=== PATIENT | male | born 1955 | race Caucasian/White ===

== ENCOUNTER 2021-08-25 14:18 | Observation (INO) | payer OTHER ==
[2021-08-25 15:01] LABS: Absolute Lymphocytes (CBC) 2.1 K/uL (0.7-4.9); Basophils % 0.7 % (0-1.3); Lymphocytes % 24.4 % (15.3-44.8); MPV 7.5 fL (7.6-11.3); RBC Red Blood Cell Count 5.23 M/uL (4.33-5.43)
[2021-08-25 15:05] LABS: Protime INR 0.97
--- NOTE | 2021-08-25 15:29 | RAD REPORT ---
EXAM DESCRIPTION: RAD - Chest Single View - 08/25/2021 3:22 pm CLINICAL HISTORY: CHEST PAIN COMPARISON: <Comparisons> FINDINGS: Lines: None. Lungs: No evidence of edema or pneumonia. Pleural: No significant pleural effusions or pneumothorax. Cardiac: The heart size is within normal limits. Bones: No acute fractures. Other: IMPRESSION: No acute cardiopulmonary disease.
[2021-08-25 15:31] LABS: ALT/SGPT 25 U/L (12-78); AST/SGOT 11 U/L (15-37); Albumin 3.6 g/dL (3.4-5.0); Alkaline Phosphatase 97 U/L (45-117); BUN Blood Urea Nitrogen 15 mg/dL (7-18); Bicarbonate 25 mmol/L (21-32); Bilirubin Direct 0.2 mg/dL (0-0.2); Bilirubin Total 0.7 mg/dL (0.2-1.0); Glucose Level 150 mg/dL (74-106); Magnesium 2.2 mg/dL (1.8-2.4); NT PRO-BNP 11 pg/mL (<125); Protein, Total 6.8 g/dL (6.4-8.2); Sodium Level 140 mmol/L (136-145); Troponin (Emerg Dept Use Only) < 0.02 ng/mL (0.0-0.045)
[2021-08-25] MEDS ORDERED: KETOROLAC 30 MG/ML INJ ONE (15:43)
[2021-08-25] MEDS ORDERED: ASPIRIN 81 MG CHEWABLE TABLET ONE (15:52)
--- NOTE | 2021-08-25 16:52 | ER ---
Nurse's Notes [facility] Name: Amrit Stewart Age: 66 yrs Sex: Male : 1955 Arrival Date: 08/25/2021 Time: 14:23 Bed 19 Private MD: Diagnosis: Chest pain, unspecified Presentation: 08/25 14:43 Chief complaint: Patient states: pt has had pain to midsternal area around to left iw shoulder and back, has chronic left shoulder pain but this pain is different, also is bloated today, denies cardiac hx, pain is 5/10 no, comes in waves. Coronavirus screen: At this time, the client does not indicate any symptoms associated with coronavirus-19. Ebola Screen: Patient negative for fever greater than or equal to 101.5 degrees Fahrenheit, and additional compatible Ebola Virus Disease symptoms Patient denies exposure to infectious person. Patient denies travel to an Ebola-affected area in the 21 days before illness onset. No symptoms or risks identified at this time. Initial Sepsis Screen: Does the patient meet any 2 criteria? No. Patient's initial sepsis screen is negative. Does the patient have a suspected source of infection? No. Patient's initial sepsis screen is negative. Risk Assessment: Do you want to hurt yourself or someone else? Patient reports no desire to harm self or others. Onset of symptoms was August 25, 2021. 14:43 Method Of Arrival: Ambulatory iw 14:43 Acuity: JOSHUA 3 iw Historical: - Allergies: 14:45 PENICILLINS; iw 14:45 Morphine; iw 14:45 tramadol; iw - Home Meds: 14:45 atorvastatin oral [Active]; losartan oral [Active]; iw - PMHx: 14:45 Hypertensive disorder; Diabetes mellitus; Arthritis; iw - Immunization history:: Client reports having NOT received the Covid vaccine. - Social history:: Smoking status: Patient denies any tobacco usage or history of. Screenin:56 Abuse screen: Denies threats or abuse. Nutritional screening: No deficits noted. vg1 Tuberculosis screening: No symptoms or risk factors identified. Fall Risk No fall in past 12 months (0 pts). No secondary diagnosis (0 pts). IV access (20 points). Ambulatory Aid- None/Bed Rest/Nurse Assist (0 pts). Gait- Normal/Bed Rest/Wheelchair (0 pts) Mental Status- Oriented to own ability (0 pts). Total Calhoun Fall Scale indicates No Risk (0-24 pts). Assessment: 14:54 General: Appears in no apparent distress. comfortable, Behavior is calm, cooperative. vg1 Pain: Complains of pain in mid-sternal area Pain radiates to back Pain began 'this morning' Also complains of nausea. Neuro: Level of Consciousness is awake, alert, obeys commands, Oriented to person, place, time, situation. Cardiovascular: Patient's skin is warm and dry. Respiratory: Reports shortness of breath Airway is patent Respiratory effort is even, unlabored, Denies cough. GI: Reports nausea. : No signs and/or symptoms were reported regarding the genitourinary system. EENT: No signs and/or symptoms were reported regarding the EENT system. Derm: Skin is intact, is healthy with good turgor, Skin is pink, warm \T\ dry. Musculoskeletal: Circulation, motion, and sensation intact. 15:57 Reassessment: Patient appears in no apparent distress at this time. Patient and/or vg1 family updated on plan of care and expected duration. Pain level reassessed. Patient is alert, oriented x 3, equal unlabored respirations, skin warm/dry/pink. Patient states feeling better. 17:19 Reassessment: Patient appears in no apparent distress at this time. No changes from ld1 previously documented assessment. Patient and/or family updated on plan of care and expected duration. Pain level reassessed. Patient is alert, oriented x 3, equal unlabored respirations, skin warm/dry/pink. Vital Signs: 14:30 BP 124 / 90; Pulse 82; Resp 18; Temp 98.4(TE); Pulse Ox 97% on R/A; Weight 104.33 kg; iw Height 6 ft. 0 in. (182.88 cm); Pain 7/10; 15:45 BP 125 / 90; Pulse 76; Resp 18; Pulse Ox 97% ; vg1 16:24 BP 121 / 86 LA Sitting; Pulse 74; Resp 19; Pulse Ox 100% on R/A; ld1 16:27 BP 111 / 99 RA Sitting; Pulse 70; Resp 18; Pulse Ox 99% on R/A; ld1 17:19 BP 120 / 83; Pulse 68; Resp 18; Pulse Ox 99% on R/A; ld1 14:30 Body Mass Index 31.19 (104.33 kg, 182.88 cm) iw ED Course: 14:23 Patient arrived in ED. mr 14:38 EKG done, by ED staff, reviewed by Aníbal Barroso MD. dh3 14:40 Initial lab(s) drawn, by me, held in ED. Inserted saline lock: 20 gauge in right dh3 forearm, using aseptic technique. Blood collected. 14:45 Triage completed. iw 14:46 Patient has correct armband on for positive identification. Placed in gown. Bed in low mh5 position. Call light in reach. Side rails up X 1. quality assurance monitor chassis on. Pulse ox on. NIBP on. 14:54 Jessica Murrieta, RN is Primary Nurse. vg1 14:54 Basic Metabolic Panel Sent. mh5 14:54 Basic Metabolic Panel Sent. mh5 14:54 CBC with Diff Sent. mh5 14:54 LFT's Sent. mh5 14:54 Magnesium Sent. mh5 14:54 NT PRO-BNP Sent. mh5 14:54 PT-INR Sent. mh5 14:54 Troponin (emerg Dept Use Only) Sent. mh5 14:56 No provider procedures requiring assistance completed. Patient maintains SpO2 vg1 saturation greater than 95% on room air. 14:56 Arm band placed on. vg1 15:16 Aron Ruggiero PA is PHCP. cp 15:16 Aníbal Barroso MD is Attending Physician. cp 15:22 XRAY Chest (1 view) In Process Unspecified. EDKS 16:52 Corinna Bernal MD is Hospitalizing Provider. cp 20:46 Patient admitted, IV remains in place. ld1 Administered Medications: 15:54 Drug: Aspirin Chewable Tablet 324 mg Route: PO; vg1 15:55 Drug: Ketorolac 15 mg Route: IVP; Site: right wrist; vg1 Outcome: 16:52 Decision to Hospitalize by Provider. cp 20:46 Admitted to Med/surg accompanied by nurse, via wheelchair, room 230, with chart, Report ld1 called to IZABELLA Ford 20:46 Condition: stable 20:46 Instructed on the need for admit. 20:46 Patient left the ED. ld1 Signatures: Dispatcher [employer] EDKS Katty Flores Irene RN RN iw Aron Ruggiero PA PA cp Martinez, Maria [facility] Rich, Kalee [facility] Jessica Murrieta, RN RN vg1 Nafisa Giles, RN RN ld1
--- NOTE | 2021-08-25 16:53 | EDPHYS ---
Physician Documentation [facility] Name: Amrit Stewart Age: 66 yrs Sex: Male : 1955 Arrival Date: 08/25/2021 Time: 14:23 Bed 19 Private MD: ED Physician Aníbal Barroso HPI: 08/25 15:30 This 66 yrs old Male presents to ER via Ambulatory with complaints of Chest Tightness, cp Shoulder Pain, Shortness Of Breath. 15:30 The patient or guardian reports chest pain that is located primarily in the substernal cp area. 15:30 Onset: today. cp 15:30 The pain radiates to left back. Associated signs and symptoms: Pertinent positives: cp chronic left shoulder pain, Pertinent negatives: abdominal pain, cough, lower extremity pain, lower extremity swelling, shortness of breath, syncope, vomiting. The chest pain is described as aching. Duration: The patient or guardian reports multiple episodes, that wax and wane. Modifying factors: the symptoms are aggravated by activity. Severity of pain: in the emergency department the pain has improved markedly. Historical: - Allergies: 14:45 PENICILLINS; iw 14:45 Morphine; iw 14:45 tramadol; iw - Home Meds: 14:45 atorvastatin oral [Active]; losartan oral [Active]; iw - PMHx: 14:45 Hypertensive disorder; Diabetes mellitus; Arthritis; iw - Immunization history:: Client reports having NOT received the Covid vaccine. - Social history:: Smoking status: Patient denies any tobacco usage or history of. ROS: 15:35 Constitutional: Negative for body aches, chills, fever, poor PO intake. cp 15:35 Eyes: Negative for injury, pain, redness, and discharge. cp 15:35 Neck: Negative for pain with movement, pain at rest, stiffness. 15:35 Cardiovascular: Positive for chest pain, Negative for edema, palpitations. 15:35 Respiratory: Positive for shortness of breath, at rest. Negative for cough, wheezing. 15:35 Abdomen/GI: Positive for nausea, abdominal distension, Negative for abdominal pain, vomiting, diarrhea, constipation, anorexia. 15:35 Back: Positive for radiated pain, Negative for injury or acute deformity, decreased range of motion. 15:35 MS/extremity: Positive for pain, of the left shoulder, Negative for injury or acute deformity, decreased range of motion, paresthesias. 15:35 All other systems are negative. cp Exam: 14:45 ECG was reviewed by the Attending Physician. cp 15:40 Constitutional: The patient appears in no acute distress, alert, awake, cp non-diaphoretic, non-toxic, well developed, well nourished. 15:40 Head/Face: Normocephalic, atraumatic. cp 15:40 Eyes: Periorbital structures: appear normal, Conjunctiva: normal, no exudate, no injection, Sclera: no appreciated abnormality, Lids and lashes: appear normal, bilaterally. 15:40 ENT: External ear(s): are unremarkable, Nose: is normal, Mouth: Lips: moist, Oral mucosa: moist, Posterior pharynx: Airway: no evidence of obstruction, patent. 15:40 Neck: ROM/movement: is normal, is supple, without pain, no range of motions limitations, no nuchal rigidity. 15:40 Chest/axilla: Inspection: normal, Palpation: is normal, no crepitus, no tenderness. 15:40 Cardiovascular: Rate: normal, Rhythm: regular, Edema: is not appreciated, JVD: is not appreciated. 15:40 Respiratory: the patient does not display signs of respiratory distress, Respirations: normal, no use of accessory muscles, no retractions, labored breathing, is not present, Breath sounds: are clear throughout, no decreased breath sounds, no stridor, no wheezing. 15:40 Abdomen/GI: Inspection: abdomen appears normal, Bowel sounds: active, all quadrants, Palpation: abdomen is soft and non-tender, in all quadrants. 15:40 Back: pain, that is mild, of the left trapezius and left scapular area. 15:40 Musculoskeletal/extremity: Extremities: grossly normal except: noted in the left shoulder: pain, tenderness, There is no evidence of decreased ROM, deformity, Pulses: noted to be 2+ in the right radial artery and left radial artery. 15:40 Neuro: Orientation: to person, place \T\ time. Mentation: is normal, Motor: moves all fours, strength is normal, Sensation: no obvious gross deficits. Vital Signs: 14:30 BP 124 / 90; Pulse 82; Resp 18; Temp 98.4(TE); Pulse Ox 97% on R/A; Weight 104.33 kg; iw Height 6 ft. 0 in. (182.88 cm); Pain 7/10; 15:45 BP 125 / 90; Pulse 76; Resp 18; Pulse Ox 97% ; vg1 16:24 BP 121 / 86 LA Sitting; Pulse 74; Resp 19; Pulse Ox 100% on R/A; ld1 16:27 BP 111 / 99 RA Sitting; Pulse 70; Resp 18; Pulse Ox 99% on R/A; ld1 17:19 BP 120 / 83; Pulse 68; Resp 18; Pulse Ox 99% on R/A; ld1 14:30 Body Mass Index 31.19 (104.33 kg, 182.88 cm) iw MDM: 15:00 Differential diagnosis: abnormal EKG, acute myocardial infarction, cholecystitis, cp Cholelithiasis costochondritis, pancreatitis, pleurisy, pneumonia, pneumothorax, stable angina, thoracic aortic disection, unstable angina. 15:26 Patient medically screened. cp 16:50 The patient was given aspirin in the Emergency Department. cp 16:50 Data reviewed: vital signs, nurses notes, lab test result(s), EKG, radiologic studies, cp plain films, and as a result, I will admit patient. Test interpretation: by ED physician or midlevel provider: ECG, plain radiologic studies. Physician consultation: Corinna Bernal MD was called at 16:45, was contacted at 16:45, regarding admission, to the telemetry unit. patient's condition. 08/25 14:46 Order name: Basic Metabolic Panel iw 08/25 14:46 Order name: CBC with Diff; Complete Time: 15:41 iw 08/25 15:41 Interpretation: Normal except: MPV 7.5. cp 08/25 14:46 Order name: LFT's; Complete Time: 15:41 iw 08/25 14:46 Order name: Magnesium; Complete Time: 15:41 iw 08/25 14:46 Order name: NT PRO-BNP; Complete Time: 15:41 iw 08/25 14:46 Order name: PT-INR; Complete Time: 15:41 iw 08/25 14:46 Order name: Troponin (emerg Dept Use Only); Complete Time: 15:41 iw 08/25 14:47 Order name: Basic Metabolic Panel; Complete Time: 15:41 EDWY 08/25 15:41 Interpretation: Normal except: CL 110; GLUC 150; GFR 86. cp 08/25 16:06 Order name: SARS-COV-2 RT PCR EDWY 08/25 17:52 Order name: Comprehensive Metabolic Panel EDWY 08/25 17:52 Order name: Comprehensive Metabolic Panel EDWY 08/25 17:52 Order name: Troponin I EDWY 08/25 17:52 Order name: Troponin I EDW[facility] 08/25 14:46 Order name: XRAY Chest (1 view); Complete Time: 15:41 iw 08/25 15:41 Interpretation: Report reviewed. cp 08/25 14:46 Order name: EKG; Complete Time: 14:47 iw 08/25 14:46 Order name: Cardiac monitoring; Complete Time: 14:46 iw 08/25 14:46 Order name: EKG - Nurse/Tech; Complete Time: 14:46 iw 08/25 14:46 Order name: IV Saline Lock; Complete Time: 14:46 iw 08/25 14:46 Order name: Labs collected and sent; Complete Time: 14:46 iw 08/25 17:52 Order name: Troponin I EDWY 08/25 17:53 Order name: 60g Consistent Carbohydrate (ADA 1800/2000) EDWY 08/25 17:53 Order name: EKG Electrocardiogram EDWY 08/25 17:53 Order name: EKG Electrocardiogram EDWY 08/25 17:53 Order name: CBC with Automated Diff EDMS 08/25 17:53 Order name: CBC with Automated Diff EDWY 08/25 17:53 Order name: Lipid Profile EDWY 08/25 17:53 Order name: Lipid Profile EDW[facility] 08/25 14:46 Order name: O2 Per Protocol; Complete Time: 14:46 iw 08/25 14:46 Order name: O2 Sat Monitoring; Complete Time: 14:46 iw 08/25 16:02 Order name: Blood Pressure Recheck: bilateral upper extremity; Complete Time: 16:28 cp EC:45 Rate is 81 beats/min. Rhythm is regular. AR interval is normal. QRS interval is normal. cp QT interval is normal. T waves are Inverted in lead aVR. Interpreted by me. Reviewed by me. Administered Medications: 15:54 Drug: Aspirin Chewable Tablet 324 mg Route: PO; vg1 15:55 Drug: Ketorolac 15 mg Route: IVP; Site: right wrist; vg1 Disposition Summary: 08/25/21 16:52 Hospitalization Ordered Hospitalization Status: Observation cp Provider: Corinna Bernal cp Location: Telemetry/MedSurg (observation) cp Condition: Stable cp Problem: new cp Symptoms: have improved cp Bed/Room Type: Standard cp Room Assignment: 230(08/25/21 20:20) mw Diagnosis - Chest pain, unspecified cp Forms: - Medication Reconciliation Form cp - SBAR form cp Signatures: Dispatcher [employer] EDWY Dominga Huerta RN RN mw Williams, Irene RN RN iw Aron Ruggiero PA PA Jessica Caruso RN RN vg1 Corrections: (The following items were deleted from the chart) 16:06 15:43 CORONAVIRUS+MR.LAB.BRZ ordered. EDWY EDMS 20:20 16:52 cp mw
[2021-08-25] MEDS ORDERED: ACETAMINOPHEN 500 MG TAB PO PRN (17:47)
[2021-08-25] MEDS ORDERED: ALBUTEROL 2.5 MG/3 ML NEB SOL NEB PRN (17:47)
[2021-08-25] MEDS ORDERED: ONDANSETRON 4 MG/2 ML VIAL IV PRN (17:47)
[2021-08-25] MEDS ORDERED: Oxycodone HCl/Acetaminophen 1 TAB TAB PO PRN (17:50)
[2021-08-25] MEDS ORDERED: LORAZEPAM 0.5 MG TABLET PO PRN (17:50)
[2021-08-25] MEDS ORDERED: HYDRALAZINE HCL 20 MG/ML VIAL IV PRN (17:50)
[2021-08-25] MEDS ORDERED: NITROGLYCERIN 0.4 MG/TAB SL PRN (17:50)
--- NOTE | 2021-08-25 17:59 | P.HP ---
Certification for Inpatient Patient admitted to: Observation With expected LOS: <2 Midnights Patient will require the following post-hospital care: None Practitioner: I am a practitioner with admitting privileges, knowledge of patient current condition, hospital course, and medical plan of care. Services: Services provided to patient in accordance with Admission requirements found in Title 42 Section 412.3 of the Code of Federal Regulations Patient History Date of Service: 08/25/21 Primary Care Provider: Chest pain Reason for admission: Chest pain History of Present Illness: 66-year-old male with past medical history of hypertension, diet-controlled diabetes, hyperlipidemia, BPH, chronic left shoulder pain with history of rotator cuff tear scheduled for MRI of the shoulder next week presents after developing substernal chest pain which is different from his typical radiating pain from the shoulder. He said the pain was more pressure-like today. Rated as about 6-7 out of 10. Pain was not radiating to the back. No associated diaphoresis, palpitation or panic feeling. He presented to the ED because of pain. Patient states he typically gets left shoulder pain that radiates to the chest but is pain was different from previous chronic pain. He admits to history of recurrent abdominal bloating and reflux symptoms. He denies prior history of similar pain. He states he had a stress test 5 years ago preknee surgery which was reportedly negative. There is a family history of coronary disease in the mother in her 50s. He denies any tobacco use or alcohol abuse. His heart score is 3. On present during the ED EKG was unremarkable with normal sinus rhythm with no ST segment changes at a rate of 68 bpm. Chest x-ray shows no acute infiltrate. Patient is being admitted for atypical chest pain. His pain has been improved with aspirin AND ketorolac use - Past Medical/Surgical History Has patient received pneumonia vaccine in the past: No Diabetic: Yes -: Hypertension -: Diet-controlled diabetes -: BPH -: Hyperlipidemia -: Knee arthroplasty -: Left shoulder rotator cuff tear - Social History Smoking Status: Never smoker Alcohol use: Yes Place of Residence: Home Review of Systems 10-point ROS is otherwise unremarkable Cardiovascular: Chest Pain Musculoskeletal: Shoulder Pain Physical Examination - Physical Exam General: Alert, In no apparent distress, Oriented x3, Obese HEENT: Atraumatic, Normocephalic, PERRLA Neck: Supple, 2+ carotid pulse no bruit, JVD not distended Respiratory: Clear to auscultation bilaterally, Normal air movement Cardiovascular: No edema, Normal pulses, Regular rate/rhythm, Normal S1 S2, Other (No reproducible chest pain or tenderness) Gastrointestinal: Normal bowel sounds, Soft and benign, Non-distended, No ascites, No tenderness Musculoskeletal: No clubbing, No swelling Integumentary: No rashes, No breakdown Neurological: Normal gait, Normal speech, Normal strength at 5/5 x4 extr, Normal tone - Studies Laboratory Data (last 24 hrs) 08/25/21 14:40: PT 11.1, INR 0.97 08/25/21 14:40: WBC 8.80, Hgb 15.5, Hct 45.0, Plt Count 234 08/25/21 14:40: Sodium 140, Potassium 4.0, BUN 15, Creatinine 0.89, Glucose 150 H, Magnesium 2.2, Total Bilirubin 0.7, AST 11 L, ALT 25, Alkaline Phosphatase 97 Assessment and Plan - Problems (Diagnosis) (1) Chest pain Current Visit: Yes Status: Acute (2) Hypertension Current Visit: Yes Status: Acute (3) Diabetes mellitus Current Visit: Yes Status: Acute (4) History of gastroesophageal reflux (GERD) Current Visit: Yes Status: Acute - Plan Atypical chest painmay be related to acute coronary syndrome though less likely Possibly due to left shoulder pain radiation versus GERD We will start aspirin Continue statin/blood pressure regimen Since controlled heart rate no urgent need for beta-leydi To do serial sets of cardiac enzymes Patient might benefit from outpatient stress test since plan for surgery in the near future Hypertensioncontrolled, continue Flomax/losartan restlessness none hyperlipidemiafollow lipid panel, continue Lipitor DVT prophylaxissubcutaneous heparin Advance directivefull code History of GERDfollow with start of Protonix as well as simethicone - Advance Directives Does patient have a Living Will: No Does patient have a Durable POA for Healthcare: No
[2021-08-25] MEDS ORDERED: SIMETHICONE 40 MG/ 0.6 ML PO ONE (18:00)
[2021-08-25] MEDS ORDERED: SIMETHICONE 80 MG TAB PO ONE (19:00)
[2021-08-25] MEDS ORDERED: ATORVASTATIN 20 MG TAB PO SCH (21:00)
[2021-08-25] MEDS ORDERED: SIMETHICONE 80 MG TAB PO SCH (21:00)
[2021-08-25] MEDS: INSULIN -REGULAR HUMAN 50 UNIT/0.5 ML ML SQ SCH (21:00)
[2021-08-25 21:03] VITALS: BMI 30.5
[2021-08-25 22:03] VITALS: O2SAT 99
[2021-08-26] MEDS: HEPARIN 5000 UNIT/ML 1 ML VIAL SQ SCH ×2 (00:06→07:59)
[2021-08-26 03:57] LABS: Absolute Lymphocytes (CBC) 1.9 K/uL (0.7-4.9); Basophils % 0.8 % (0-1.3); Hematocrit 41.3 % (39.6-49.0); Lymphocytes % 24.8 % (15.3-44.8); MPV 7.6 fL (7.6-11.3); RBC Red Blood Cell Count 4.77 M/uL (4.33-5.43)
[2021-08-26 04:15] LABS: Bilirubin Total 0.8 mg/dL (0.2-1.0); Potassium 4.2 mmol/L (3.5-5.1); Protein, Total 5.7 g/dL (6.4-8.2)
[2021-08-26] MEDS: INSULIN -REGULAR HUMAN 50 UNIT/0.5 ML ML SQ SCH (08:04)
[2021-08-26] MEDS ORDERED: ASPIRIN EC 81 MG TAB PO SCH (09:00)
[2021-08-26] MEDS ORDERED: TAMSULOSIN 0.4 MG SR CAP PO SCH (09:00)
[2021-08-26] MEDS ORDERED: SIMETHICONE 80 MG TAB PO SCH (09:00)
[2021-08-26] MEDS ORDERED: LOSARTAN POTASSIUM 50 MG TABLET PO SCH (09:00)
[2021-08-26 09:32] VITALS: BP 131/75; TEMP 97.6
--- NOTE | 2021-08-26 10:39 | P.DS ---
Admission Date: 08/25/21 Discharge Date: 08/26/21 Primary Care Provider: Chest pain Disposition: ROUTINE DISCHARGE Discharge Condition: FAIR Reason for Admission: Chest pain - Problems (1) Chest pain Current Visit: Yes Status: Acute (2) Hypertension Current Visit: Yes Status: Acute (3) Diabetes mellitus Current Visit: Yes Status: Acute (4) History of gastroesophageal reflux (GERD) Current Visit: Yes Status: Acute Brief History of Present Illness: 66-year-old male with past medical history of hypertension, diet-controlled diabetes, hyperlipidemia, BPH, chronic left shoulder pain with history of rotator cuff tear scheduled for MRI of the shoulder next week presents after developing substernal chest pain which is different from his typical radiating pain from the shoulder. He said the pain was more pressure-like today. Rated as about 6-7 out of 10. Pain was not radiating to the back. No associated diaphoresis, palpitation or panic feeling. He presented to the ED because of pain. Patient states he typically gets left shoulder pain that radiates to the chest but is pain was different from previous chronic pain. He admits to history of recurrent abdominal bloating and reflux symptoms. He denies prior history of similar pain. He states he had a stress test 5 years ago preknee surgery which was reportedly negative. There is a family history of coronary disease in the mother in her 50s. He denies any tobacco use or alcohol abuse. His heart score is 3. On present during the ED EKG was unremarkable with normal sinus rhythm with no ST segment changes at a rate of 68 bpm. Chest x-ray shows no acute infiltrate. Patient is being admitted for atypical chest pain. His pain has been improved with aspirin AND ketorolac use Hospital Course: 66-year-old admitted for left-sided chest pain which resolved with ketorolac on admission to the ED. Chest pain did not recur during admission. Telemetry was normal. He had negative sets of cardiac enzymes. Echocardiogram was ordered but is pending. Patient lipid panel was within normal range. He had mild elevated glucose but states he will follow-up with his supervisor grading. Patient has been ruled out and will be discharged home today. Patient advised to follow-up with primary care physician as outpatient for stress test Vital Signs/Physical Exam: Temp Pulse Resp BP Pulse Ox 97.6 F 65 16 131/75 97 08/26/21 08:00 08/26/21 08:00 08/26/21 08:00 08/26/21 08:00 08/26/21 08:00 General: Alert, In no apparent distress, Oriented x3 HEENT: Atraumatic, Normocephalic, PERRLA Respiratory: Clear to auscultation bilaterally, Normal air movement Cardiovascular: Normal pulses, Regular rate/rhythm, Normal S1 S2 Gastrointestinal: Normal bowel sounds, Soft and benign, Non-distended Musculoskeletal: No clubbing, No swelling Neurological: Normal speech, Normal strength at 5/5 x4 extr, Sensation intact, Cranial nerves 3-12 intact External genitalia: No edema, No lesions Laboratory Data at Discharge: WBC 7.60 K/uL (4.3-10.9) 08/26/21 03:47 Hgb 14.0 g/dL (13.6-17.9) 08/26/21 03:47 Hct 41.3 % (39.6-49.0) 08/26/21 03:47 Plt Count 192 K/uL (152-406) 08/26/21 03:47 PT 11.1 SECONDS (9.5-12.5) 08/25/21 14:40 INR 0.97 08/25/21 14:40 Sodium 141 mmol/L (136-145) 08/26/21 03:47 Potassium 4.2 mmol/L (3.5-5.1) 08/26/21 03:47 BUN 15 mg/dL (7-18) 08/26/21 03:47 Creatinine 0.90 mg/dL (0.55-1.3) 08/26/21 03:47 Glucose 142 mg/dL (74-106) H 08/26/21 03:47 Magnesium 2.2 mg/dL (1.8-2.4) 08/25/21 14:40 Total Bilirubin 0.8 mg/dL (0.2-1.0) 08/26/21 03:47 AST 11 U/L (15-37) L 08/26/21 03:47 ALT 23 U/L (12-78) 08/26/21 03:47 Alkaline Phosphatase 69 U/L (45-117) 08/26/21 03:47 Troponin I < 0.02 ng/mL (0.0-0.045) 08/26/21 03:47 Triglycerides 128 mg/dL (<150) 08/26/21 03:47 Cholesterol 110 mg/dL (<200) 08/26/21 03:47 HDL Cholesterol 41 mg/dL (40-60) 08/26/21 03:47 Cholesterol/HDL Ratio 2.68 08/26/21 03:47 Home Medications: Atorvastatin Calcium [Lipitor*] 20 mg PO BEDTIME 08/25/21 Losartan Potassium [Cozaar*] 50 mg PO DAILY 08/25/21 Tamsulosin [Flomax*] 0.4 mg PO DAILY 08/25/21 Diet: ADA Activity: Ad tierney Time spent managing pt's care (in minutes): 30
--- NOTE | 2021-08-26 17:01 | EKG ---
Test Date: 2021-08-25 Test Time: 14:38:11 Head Refrigerating Engineer: JOSE DE JESUS MEASUREMENT RESULTS: Intervals: Rate: 81 NE: 190 QRSD: 90 QT: 378 QTc: 439 [place]: P: 42 NE: 190 QRS: 1 T: 33 INTERPRETIVE STATEMENTS: Normal sinus rhythm Low voltage QRS Borderline ECG No previous ECG available for comparison Electronically Signed On 08-26-21 16:59:58 NURSING SURGICAL SERVICES DIRECTOR by Hero Baptiste
== END 2021-08-26 11:00 | disposition home or self-care (01) ==
LOC: ER 14:18 → 2ND 20:16
PROVIDERS: ADMIT Internal Medicine; ATTEND Internal Medicine
DX: R07.89 Other chest pain (principal); I10 Essential (primary) hypertension; E11.9 Type 2 diabetes mellitus without complications; K21.9 Gastro-esophageal reflux disease without esophagitis; M25.512 Pain in left shoulder; G89.29 Other chronic pain; E78.5 Hyperlipidemia, unspecified; N40.0 Benign prostatic hyperplasia without lower urinary tract symptoms; Z20.822 Contact with and (suspected) exposure to COVID-19; Z88.0 Allergy status to penicillin; Z82.49 Family history of ischemic heart disease and other diseases of the circulatory system
CPT/HCPCS: 93005; 85025 ×2; 80048; 36415; 83735; 85610; 80061; 82947 ×2; 80076; 84484 ×3; 80053; 83880; 71045; 96374; 99285; U0003; J1644 ×2; G0378